=== PATIENT | female | born 1985 | race Two or more races ===

== ENCOUNTER 2016-12-22 18:52 | Emergency (ER) | payer SELFPAY ==
[~2016-12-22] VITALS: Ht 157.5 cm; Wt 65.8 kg
[2016-12-22 19:12] VITALS: BP 141/66
== END 2016-12-23 00:15 | disposition left against medical advice (07) ==
LOC: ER 19:07
DX: S00.93XA Contusion of unspecified part of head, initial encounter (principal); R51 Headache; Z53.21 Procedure and treatment not carried out due to patient leaving prior to being seen by health care provider; V80.010A Animal-rider injured by fall from or being thrown from horse in noncollision accident, initial encounter; Y93.89 Activity, other specified; Y99.8 Other external cause status; Y92.89 Other specified places as the place of occurrence of the external cause
CPT/HCPCS: 70450; 72125; 81025

== ENCOUNTER 2020-06-08 17:06 | Emergency (ER) | payer BC, MEDICAID ==
[~2020-06-08] VITALS: Ht 157.5 cm; Wt 73.9 kg
[2020-06-08 18:38] LABS: Basophils # (auto) 0.1 10 ^3/uL (0-0.2); Basophils % (auto) 0.8 % (0.0-2.0); Eosinophils # (auto) 0.4 10 ^3/uL (0-0.8); Eosinophils % (auto) 4.8 % (0.0-7.0); Hemoglobin 15.2 g/dL (12.2-16.2); Lymphocytes # (auto) 2.9 10 ^3/uL (0.4-5.4); Mean Corpuscular Hemoglobin 28.4 pg (28.0-32.0); Mean Corpuscular Hgb Conc. 33.8 g/dL (32.0-36.0); Mean Corpuscular Volume 83.9 fL (80.0-100.0); Monocytes # (auto) 0.5 10 ^3/uL (0-1.3); Monocytes % (auto) 6.1 % (0.0-12.0); Neutrophils # (auto) 4.9 10 ^3/uL (1.6-8.6); Neutrophils % (auto) 55.3 % (37.0-80.0); Nucleated Red Blood Cells % 0.1 %; Platelet Count (auto) 236 10^3/uL (140-450); Red Blood Cells 5.36 10^6/uL (4.0-5.20); Red Cell Distribution Width 13.6 % (11.8-14.3); White Blood Cell 8.9 10^3/uL (4.4-10.8)
[2020-06-08 18:50] LABS: Albumin 4.2 g/dL (3.4-5.0); Potassium 3.7 mmol/L (3.5-5.1)
[2020-06-08 18:54] LABS: INR 0.96 (0.9-1.15); Partial Thromboplastin Time 28.1 sec (23.0-31.2)
[2020-06-08 18:55] LABS: Bilirubin, Total 0.6 mg/dL (0.2-1.0); Total Protein 8.2 g/dL (6.4-8.2)
[2020-06-08 19:44] LABS: Urine Bacteria NONE SEEN /hpf (None Seen); Urine Blood Negative /uL (Negative); Urine Mucus FEW (None Seen); Urine Specific Gravity 1.011 (1.001-1.035); Urine WBC 6 /hpf (0 - 5)
[2020-06-08 20:47] VITALS: BP 125/75
== END 2020-06-08 20:46 | disposition home or self-care (01) ==
LOC: ER 17:06
DX: N39.0 Urinary tract infection, site not specified (principal); Z32.02 Encounter for pregnancy test, result negative
CPT/HCPCS: 36415; 74176; 80053; 81001; 81025; 83690; 85025; 85610; 85730

== ENCOUNTER 2021-01-10 01:15 | Emergency (ER) | payer MEDICAID ==
[~2021-01-10] VITALS: Ht 157.5 cm; Wt 71.7 kg
[2021-01-10] MEDS ORDERED: diphenhdrAMINE HCL 50 MG/1 ML VL IM ONE (01:30)
[2021-01-10] MEDS ORDERED: methylPREDNISolone SOD SUCC 125 MG/2 ML VL IM ONE (01:30)
[2021-01-10 03:00] VITALS: BP 120/72
== END 2021-01-10 03:15 | disposition home or self-care (01) ==
LOC: ER 01:16
DX: R21 Rash and other nonspecific skin eruption (principal); R22.0 Localized swelling, mass and lump, head; T78.1XXA Other adverse food reactions, not elsewhere classified, initial encounter; Z91.013 Allergy to seafood; X58.XXXA Exposure to other specified factors, initial encounter
CPT/HCPCS: 93005; 96372; 99284; J1200; J2930

== ENCOUNTER 2021-08-25 04:50 | Emergency (ER) | payer MEDICAID ==
[~2021-08-25] VITALS: Ht 152.4 cm; Wt 65.8 kg
[2021-08-25 04:50] VITALS: BP 146/91
[2021-08-25 06:40] LABS: Basophils # (auto) 0.1 10 ^3/uL (0-0.2); Basophils % (auto) 0.7 % (0.0-2.0); Eosinophils # (auto) 0.5 10 ^3/uL (0-0.8); Eosinophils % (auto) 5.9 % (0.0-7.0); Hematocrit 41.9 % (36.0-46.0); Hemoglobin 14.4 g/dL (12.2-16.2); Lymphocytes # (auto) 2.2 10 ^3/uL (0.4-5.4); Lymphocytes % (auto) 29.3 % (10.0-50.0); Mean Corpuscular Hemoglobin 28.6 pg (28.0-32.0); Mean Corpuscular Hgb Conc. 34.3 g/dL (32.0-36.0); Mean Corpuscular Volume 83.2 fL (80.0-100.0); Monocytes # (auto) 0.4 10 ^3/uL (0-1.3); Monocytes % (auto) 5.9 % (0.0-12.0); Neutrophils # (auto) 4.4 10 ^3/uL (1.6-8.6); Neutrophils % (auto) 58.2 % (37.0-80.0); Nucleated Red Blood Cells % 0.1 %; Red Blood Cells 5.03 10^6/uL (4.0-5.20); Red Cell Distribution Width 14.6 % (11.8-14.3); White Blood Cell 7.6 10^3/uL (4.4-10.8)
[2021-08-25 07:07] LABS: Albumin 4.5 g/dL (3.4-5.0); Magnesium 2.5 mg/dL (1.6-2.6); Potassium 3.7 mmol/L (3.5-5.1)
[2021-08-25 07:09] LABS: BUN/Creatinine Ratio 17.4
[2021-08-25 07:13] LABS: Bilirubin, Total 0.2 mg/dL (0.2-1.0); Total Protein 7.6 g/dL (6.4-8.2)
== END 2021-08-25 08:07 | disposition left against medical advice (07) ==
LOC: ER 04:50
DX: A05.9 Bacterial foodborne intoxication, unspecified (principal); R10.13 Epigastric pain; R11.2 Nausea with vomiting, unspecified; R19.7 Diarrhea, unspecified
CPT/HCPCS: 36415; 80053; 83690; 83735; 85025

== ENCOUNTER 2021-11-15 17:18 | Emergency (ER) | payer MEDICAID ==
[~2021-11-15] VITALS: Ht 157.5 cm; Wt 70.4 kg
[2021-11-15 18:40] LABS: Urine Bacteria FEW /hpf (None Seen); Urine Blood Negative /uL (Negative); Urine Specific Gravity 1.013 (1.001-1.035); Urine WBC 12 /hpf (0 - 5)
[2021-11-15 18:47] LABS: Basophils # (auto) 0.1 10 ^3/uL (0-0.2); Basophils % (auto) 0.8 % (0.0-2.0); Eosinophils # (auto) 0.4 10 ^3/uL (0-0.8); Eosinophils % (auto) 4.8 % (0.0-7.0); Hematocrit 43.5 % (36.0-46.0); Hemoglobin 14.5 g/dL (12.2-16.2); Lymphocytes # (auto) 3.6 10 ^3/uL (0.4-5.4); Lymphocytes % (auto) 43.4 % (10.0-50.0); Mean Corpuscular Hemoglobin 27.5 pg (28.0-32.0); Mean Corpuscular Hgb Conc. 33.4 g/dL (32.0-36.0); Mean Corpuscular Volume 82.4 fL (80.0-100.0); Monocytes # (auto) 0.6 10 ^3/uL (0-1.3); Monocytes % (auto) 6.9 % (0.0-12.0); Neutrophils # (auto) 3.6 10 ^3/uL (1.6-8.6); Neutrophils % (auto) 44.1 % (37.0-80.0); Nucleated Red Blood Cells % 0.1 %; Red Blood Cells 5.28 10^6/uL (4.0-5.20); Red Cell Distribution Width 14.6 % (11.8-14.3); White Blood Cell 8.2 10^3/uL (4.4-10.8)
[2021-11-15 18:58] LABS: Albumin 4.4 g/dL (3.4-5.0); BUN/Creatinine Ratio 15.9; Calcium 9.3 mg/dL (8.5-10.1); Potassium 4.1 mmol/L (3.5-5.1)
[2021-11-15 19:01] LABS: Bilirubin, Total 0.4 mg/dL (0.2-1.0); Total Protein 7.5 g/dL (6.4-8.2)
[2021-11-15] MEDS ORDERED: KETOROLAC TROMETH 60MG/2ML VIAL IV ONE (19:45)
[2021-11-15] MEDS ORDERED: ONDANSETRON HCL 4 MG/2 ML VIAL IV ONE (19:45)
[2021-11-15] MEDS ORDERED: cefTRIAXone 1GM/50ML D5W 50 ML IV ONE (19:45)
[2021-11-15] MEDS ORDERED: HYDR-4902 PO (20:27)
[2021-11-15] MEDS ORDERED: LEVO750T8 PO (20:27)
[2021-11-15] MEDS ORDERED: HYDROcodone-ACET 5/325MG TAB PO ONE (22:45)
[2021-11-15 23:06] VITALS: BP 127/82
== END 2021-11-15 23:42 | disposition home or self-care (01) ==
LOC: ER 17:18
DX: N39.0 Urinary tract infection, site not specified (principal); R10.2 Pelvic and perineal pain
CPT/HCPCS: 36415; 74176; 80053; 81001; 83690; 84702; 85025; 96365; 96375; 99284; J0696; J1885; J2405

== ENCOUNTER 2021-11-16 21:21 | Emergency (ER) | payer MEDICAID ==
[~2021-11-16] VITALS: Ht 157.5 cm; Wt 73.5 kg
[~2021-11-16 21:21] MED LIST: HYDR-4902 PO; LEVO750T8 PO
[2021-11-16 22:21] VITALS: BP 142/88
== END 2021-11-17 18:21 | disposition left against medical advice (07) ==
LOC: ER 21:21
DX: R10.9 Unspecified abdominal pain (principal); Z53.21 Procedure and treatment not carried out due to patient leaving prior to being seen by health care provider

== ENCOUNTER 2022-02-13 19:48 | Emergency (ER) | payer MEDICAID | END 2022-02-13 21:30 | disposition left against medical advice (07) | LOC: ER 19:48 | DX: M79.672 Pain in left foot (principal); Z53.21 Procedure and treatment not carried out due to patient leaving prior to being seen by health care provider ==

== ENCOUNTER 2022-06-25 21:10 | Emergency (ER) | payer MEDICAID ==
[~2022-06-25] VITALS: Ht 157.5 cm; Wt 70.0 kg
[2022-06-26] MEDS ORDERED: AMOX-277 PO (03:12)
[2022-06-26] MEDS ORDERED: IBUP800T27 PO (03:12)
[2022-06-26] MEDS ORDERED: ACYC-161 PO (03:12)
[2022-06-26] MEDS ORDERED: KETOROLAC TROMETH 60MG/2ML VIAL IM ONE (03:15)
[2022-06-26 04:12] VITALS: BP 138/64
== END 2022-06-26 04:19 | disposition home or self-care (01) ==
LOC: ER 21:10
DX: H66.92 Otitis media, unspecified, left ear (principal); B00.1 Herpesviral vesicular dermatitis; Z88.6 Allergy status to analgesic agent; Z79.899 Other long term (current) drug therapy
CPT/HCPCS: 81025; 96372; 99283; J1885

== ENCOUNTER 2022-08-18 20:59 | Emergency (ER) | payer MEDICAID ==
[~2022-08-18] VITALS: Ht 157.5 cm; Wt 68.1 kg
[~2022-08-18 20:59] MED LIST changes: +ACYC400T16 PO; +AMOX875T4 PO; +IBUP-1456 PO
[2022-08-18 21:54] LABS: Urine Bacteria FEW /hpf (None Seen); Urine Blood Negative /uL (Negative); Urine Specific Gravity 1.005 (1.001-1.035); Urine WBC 7 /hpf (0 - 5)
[2022-08-18 22:06] LABS: Basophils # (auto) 0.1 10 ^3/uL (0-0.2); Eosinophils # (auto) 0.6 10 ^3/uL (0-0.8); Eosinophils % (auto) 7.1 % (0.0-7.0); Hematocrit 41.4 % (36.0-46.0); Hemoglobin 14.2 g/dL (12.2-16.2); Lymphocytes % (auto) 37.1 % (10.0-50.0); Mean Corpuscular Hemoglobin 28.4 pg (28.0-32.0); Mean Corpuscular Hgb Conc. 34.3 g/dL (32.0-36.0); Mean Corpuscular Volume 82.9 fL (80.0-100.0); Monocytes # (auto) 0.6 10 ^3/uL (0-1.3); Monocytes % (auto) 7.2 % (0.0-12.0); Neutrophils # (auto) 3.9 10 ^3/uL (1.6-8.6); Neutrophils % (auto) 47.6 % (37.0-80.0); Nucleated Red Blood Cells % 0.2 %; Red Blood Cells 4.99 10^6/uL (4.0-5.20); Red Cell Distribution Width 14.6 % (11.8-14.3); White Blood Cell 8.2 10^3/uL (4.4-10.8)
[2022-08-18 22:30] LABS: Albumin 3.9 g/dL (3.4-5.0)
[2022-08-18 22:33] LABS: BUN/Creatinine Ratio 17.6 (10.0-20.0); Bilirubin, Total 0.3 mg/dL (0.2-1.0); Total Protein 7.3 g/dL (6.4-8.2)
[2022-08-18] MEDS ORDERED: MORPHINE SULFATE 4 MG/ML SYR/VIAL IV ONE (23:00)
[2022-08-18] MEDS ORDERED: SODIUM CHLORIDE 0.9% 1,000 ML IV ONE (23:00)
[2022-08-18] MEDS ORDERED: FAMOTIDINE (10MG/ML) 2ML VL IV ONE (23:00)
[2022-08-18] MEDS ORDERED: ONDANSETRON HCL 4 MG/2 ML VIAL IV ONE (23:00)
[2022-08-18 23:53] VITALS: BP 138/82
[2022-08-18] MEDS ORDERED: ONDA-144 PO (23:58)
[2022-08-18] MEDS ORDERED: CEPH-510 PO (23:58)
[2022-08-18] MEDS ORDERED: DICY10CA PO (23:58)
[2022-08-18] MEDS ORDERED: PHEN-922 PO (23:59)
[2022-08-19] MEDS ORDERED: cefTRIAXone 1GM/50ML D5W 50 ML IV ONE
== END 2022-08-19 00:35 | disposition home or self-care (01) ==
LOC: ER 21:01
DX: R10.32 Left lower quadrant pain (principal); N39.0 Urinary tract infection, site not specified; K76.0 Fatty (change of) liver, not elsewhere classified; K65.4 Sclerosing mesenteritis; Z79.1 Long term (current) use of non-steroidal anti-inflammatories (NSAID); Z79.2 Long term (current) use of antibiotics; Z79.899 Other long term (current) drug therapy
CPT/HCPCS: 36415; 74176; 76856; 80053; 81001; 81025; 83690; 85025; 96361; 96365; 96375; 99285; J0696; J2270; J2405; J3490; J7030

== ENCOUNTER 2022-08-21 19:47 | Emergency (ER) | payer MEDICAID ==
[~2022-08-21 19:47] MED LIST changes: +CEPH-510 PO; +DICY10CA PO; +ONDA-144 PO; +PHEN-922 PO
== END 2022-08-21 20:53 | disposition left against medical advice (07) ==
LOC: ER 19:48
DX: R10.9 Unspecified abdominal pain (principal); Z53.21 Procedure and treatment not carried out due to patient leaving prior to being seen by health care provider